=== PATIENT | female | born 1970 | race Caucasian/White ===

== ENCOUNTER → 2017-05-25 | Outpatient (CLI) | payer OTHER ==
--- NOTE | 2017-05-25 14:26 | RADIOLOGY REPORT PS360 ---
US RUQ-(ABD LTD)1ORGAN/QUAD/FU HISTORY: ELEVATED LIVER ENZYMES ORDERING PHYSICIAN: Josselyn RIVERA PATIENT AGE: 46 years COMPARISON: None FINDINGS: PANCREAS:Not well delineated LIVER:Fatty liver. No focal liver lesions or biliary dilatation. RIGHT KIDNEY:Unremarkable. Normal size and echogenicity. No hydronephrosis GALLBLADDER:Multiple gallstones. No gallbladder wall thickening, pericholecystic fluid, or biliary dilatation. Common bile duct is upper normal at 6 mm. IMPRESSION: 1. Cholelithiasis. 2. Hepatic steatosis
--- NOTE | 2017-05-26 09:36 | RADIOLOGY REPORT PS360 ---
MRI-LOW EXT ANY JOINT W/O-RT HISTORY: Constant right hip pain RIGHT HIP PAIN ORDERING PHYSICIAN: Josselyn RIVERA PATIENT AGE: 46 years COMPARISON: Radiograph of 11/09/2016 TECHNIQUE: Standard multiplanar multiecho sequences are performed without contrast. FINDINGS: There are minor osteoarthritic changes of both hips. No fracture or dislocation is evident. No destructive process. There is a small right hip joint effusion. There is no evidence of avascular necrosis. There is slight increased T2 signal involving the soft tissues adjacent to the greater trochanter consistent with trochanteric bursitis. A small amount fluid is present in this region as well deep to the gluteus medius. IMPRESSION: 1. Right greater trochanteric bursitis 2. Minimal osteoarthritic changes with small right hip joint effusion. 3. No fracture, dislocation, destructive process, or avascular necrosis apparent
== END ==
LOC: RAD 05-24 14:45
DX: M25.551 Pain in right hip (principal)

== ENCOUNTER → 2017-06-04 | Outpatient (CLI) | payer OTHER ==
[2017-06-05 08:39] LABS: Iron 61 ug/dL (27-159); Iron Saturation 19 % (15-55); UIBC 268 ug/dL (131-425)
[2017-06-05 09:41] LABS: Alpha-1-Antitrypsin 135 mg/dL (90-200); Immunoglobulin A, Qn 369 mg/dL (87-352); Immunoglobulin G, Qn 1139 mg/dL (700-1600); Immunoglobulin M, Qn 124 mg/dL (26-217)
[2017-06-05 10:36] LABS: HBsAg Screen Negative (Negative); Hep A Ab, IgM Negative (Negative); Hep A Ab, Total Positive (Negative); Hep B Core Ab, IgM Negative (Negative); Hep B Core Ab, Tot Negative (Negative); Hep B Surface Ab, Qual Non Reactive (.); Hep C Virus Ab 0.2 (0.0-0.9)
[2017-06-05 16:39] LABS: Actin (Smooth Muscle) Antibody 11 Units (0-19); Liver-Kidney Microsomal Ab <1.0 Units (0.0-20.0); Mitochondrial (M2) Antibody <20.0 Units (0.0-20.0); t-Transglutaminase (tTG) IgA <2 U/mL (0-3)
[2017-06-07 16:40] LABS: ACE 40 U/L (14-82); Antinuclear Antibodies, IFA Negative (.)
[2017-06-09 05:36] LABS: ALT (SGPT) P5P 67 IU/L (0-40); Alpha 2-Macroglobulins, Qn 174 mg/dL (110-276); Apolipoprotein A-1 155 mg/dL (116-209); Bilirubin, Total 0.3 mg/dL (0.0-1.2); GGT 23 IU/L (0-60); Haptoglobin 76 mg/dL (34-200); Necroinflammat Activity Grade A1-Minimal activity (.); Necroinflammat Activity Score 0.33 (0.00-0.17)
== END ==
LOC: LAB 09:00
PROVIDERS: Nurse Practitioner Acute Care
DX: R94.5 Abnormal results of liver function studies (principal)